=== PATIENT | male | born 1965 | race Caucasian/White ===

== ENCOUNTER 2021-02-27 07:55 | Emergency (ER) | payer OTHER ==
[~2021-02-27] VITALS: Ht 167.6 cm; Wt 77.3 kg
[2021-02-27 08:11] VITALS: TEMP 97.8
[2021-02-27 08:46] LABS: BASO % 0.3 % (0.0-2.0); EOS # 0.5 (0.0-0.7); EOS % 5.1 % (0-4.0); GRAN # 6.6 (1.4-6.5); GRAN % 68.3 % (42.2-75.2); HEMATOCRIT 45.1 % (42.0-52.0); HEMOGLOBIN 15.5 g/dl (13.5-18.0); LYMPH # 1.8 (1.2-3.4); LYMPH % 18.5 % (20.0-51.0); MEAN CELL VOLUME 87 fl (80.0-100.0); MEAN CORPUSCULAR HEMOGLOBIN 30 pg (27.0-31.0); MEAN CORPUSCULAR HGB CONC 34 g/dl (33.0-37.0); MEAN PLATELET VOLUME 9.6 fl (7.4-10.4); MONO # 0.7 (0.1-0.6); MONO % 7.1 % (1.7-9.3); PLATELET COUNT 221 K/mm3 (130-400); RED BLOOD COUNT 5.16 M/mm3 (4.20-5.60); REDCELL DISTRIBUTION WIDTH-CV 13.3 % (11.5-14.5)
[2021-02-27 09:01] LABS: ALBUMIN 4.2 gm/dL (3.5-5.0); BILIRUBIN,TOTAL 1.3 mg/dL (0.2-1.2); CALCIUM 9.9 mg/dL (8.4-10.2); CREATININE, serum 0.88 mg/dL (0.72-1.25); POTASSIUM 4.5 mmol/L (3.5-4.5); TOTAL PROTEIN 7.9 gm/dL (6.2-8.1)
[2021-02-27] MEDS ORDERED: ZOFRAN ODT4 MG PO (11:13)
[2021-02-27 11:17] VITALS: BP 126/85; PULSE 78
== END 2021-02-27 11:21 | disposition home or self-care (01) ==
LOC: COL.ER 07:55
PROVIDERS: Personal Emergency Response Attendant
DX: R10.31 Right lower quadrant pain (principal); R11.10 Vomiting, unspecified; E11.9 Type 2 diabetes mellitus without complications; J45.909 Unspecified asthma, uncomplicated; I10 Essential (primary) hypertension; Z90.49 Acquired absence of other specified parts of digestive tract
CPT/HCPCS: J2270; J7030; Q9967

== ENCOUNTER 2021-07-16 13:54 | Observation (INO) | payer OTHER ==
[~2021-07-16] VITALS: Ht 167.6 cm; Wt 80.3 kg
[~2021-07-16 13:54] MED LIST: ZOFRAN ODT4 MG PO
[2021-07-16 14:16] LABS: BASO % 0.4 % (0.0-2.0); EOS # 0.5 K/mm3 (0.0-0.7); EOS % 5.4 % (0.0-4.0); GRAN % 64.2 % (42.2-75.2); HEMATOCRIT 39.6 % (42.0-52.0); HEMOGLOBIN 13.9 g/dl (13.5-18.0); LYMPH % 21.8 % (20.0-51.0); MEAN CELL VOLUME 83 fl (80.0-100.0); MEAN CORPUSCULAR HEMOGLOBIN 29 pg (27-31); MEAN CORPUSCULAR HGB CONC 35 g/dl (33.0-37.0); MONO # 0.7 K/mm3 (0.1-0.6); MONO % 7.4 % (1.7-9.3); PLATELET COUNT 260 K/mm3 (130-400); RED BLOOD COUNT 4.75 M/mm3 (4.20-5.60); REDCELL DISTRIBUTION WIDTH-CV 13.2 % (11.5-14.5)
[2021-07-16 14:23] LABS: INR 1.1 (0.8-3.0); PROTHROMBIN TIME 11.8 SECONDS (9.7-12.8)
[2021-07-16 14:26] LABS: PARTIAL THROMBOPLASTIN TIME 25.9 SECONDS (26.0-37.0)
[2021-07-16 14:31] LABS: ALANINE AMINOTRANSFERASE 48 U/L (0-55); ALBUMIN 4.2 gm/dL (3.5-5.0); ALKALINE PHOSPHATASE 108 U/L (40-150); ANION GAP 11 mmol/L (7-16); AST,SGOT 29 U/L (5-34); BILIRUBIN,TOTAL 1.5 mg/dL (0.2-1.2); BLOOD UREA NITROGEN 12 mg/dL (8-26); CALCIUM 9.7 mg/dL (8.4-10.2); CARBON DIOXIDE 23 mmol/L (22-29); CHLORIDE 105 mmol/L (98-107); CREATININE, serum 0.78 mg/dL (0.72-1.25); GLUCOSE 152 mg/dL (70-99); POTASSIUM 3.6 mmol/L (3.5-4.5); SODIUM 139 mmol/L (136-145); TOTAL PROTEIN 7.1 gm/dL (6.2-8.1)
[2021-07-16 14:37] LABS: TROPONIN-I < 0.010 ng/mL (0.00-0.033)
[2021-07-16] MEDS ORDERED: LIPITOR20 MG PO (19:25)
[2021-07-16] MEDS ORDERED: TRULICITY1.5 MG/0.5 SQ (19:25)
[2021-07-16] MEDS ORDERED: PROTONIX 40MG T40 MG PO (19:25)
[2021-07-16] MEDS ORDERED: PROVENTIL0.09 MG/A1 IH (19:26)
[2021-07-16] MEDS ORDERED: COZAAR 25MG25 MG/TAB PO (19:26)
[2021-07-16] MEDS ORDERED: ERY-TAB250 MG PO (19:26)
[2021-07-16] MEDS ORDERED: PEPCID 20MG TAB20 MG PO (19:27)
[2021-07-16] MEDS ORDERED: HCTZ12.5TAB PO (19:27)
[2021-07-16] MEDS ORDERED: GLUCOPHAGE1000 MG PO (19:27)
[2021-07-16] MEDS ORDERED: ZYRTEC 10MG10 MG PO (19:28)
[2021-07-16] MEDS ORDERED: FLOMAX 0.40.4 MG/CAP PO (19:28)
[2021-07-16] MEDS ORDERED: ZOLOFT 50MG50 MG PO (19:28)
[2021-07-16] MEDS ORDERED: AMITRIPTYLINE H25 M1 PO (19:29)
[2021-07-16] MEDS ORDERED: MOTRIN 600600 MG/TAB PO (19:29)
[2021-07-16 21:15] VITALS: BP 126/86; PULSE 93; TEMP 97.4
[2021-07-16] MEDS ORDERED: RT ADVAIR 228 DISKUS IH (21:19)
[2021-07-16 23:45] VITALS: BP 100/64; PULSE 82; TEMP 97.6
[2021-07-17] VITALS (15 sets, daily range): BP systolic 102–123; BP diastolic 61–80; PULSE 68–95; TEMP 97.8–98.2
[2021-07-17 04:32] LABS: BASO % 0.4 % (0.0-2.0); EOS # 0.5 K/mm3 (0.0-0.7); EOS % 6.1 % (0.0-4.0); GRAN # 5.4 K/mm3 (1.4-6.5); GRAN % 64.2 % (42.2-75.2); HEMATOCRIT 38.8 % (42.0-52.0); HEMOGLOBIN 13.3 g/dl (13.5-18.0); LYMPH # 1.8 K/mm3 (1.2-3.4); LYMPH % 22.1 % (20.0-51.0); MEAN CELL VOLUME 87 fl (80.0-100.0); MEAN CORPUSCULAR HEMOGLOBIN 30 pg (27-31); MEAN CORPUSCULAR HGB CONC 34 g/dl (33.0-37.0); MONO # 0.6 K/mm3 (0.1-0.6); MONO % 6.7 % (1.7-9.3); PLATELET COUNT 238 K/mm3 (130-400); RED BLOOD COUNT 4.46 M/mm3 (4.20-5.60); REDCELL DISTRIBUTION WIDTH-CV 13.3 % (11.5-14.5)
[2021-07-17 04:47] LABS: ANION GAP 10 mmol/L (7-16); BLOOD UREA NITROGEN 16 mg/dL (8-26); CALCIUM 9.3 mg/dL (8.4-10.2); CARBON DIOXIDE 24 mmol/L (22-29); CHLORIDE 106 mmol/L (98-107); CHOLESTEROL 121 mg/dL (0-199); CREATININE, serum 0.85 mg/dL (0.72-1.25); GLUCOSE 183 mg/dL (70-99); HDL CHOLESTEROL 30 mg/dL (40-60); LDL CHOLESTEROL 0 mg/dL; POTASSIUM 3.8 mmol/L (3.5-4.5); SODIUM 140 mmol/L (136-145); TRIGLYCERIDE 454 mg/dL (0-149)
[2021-07-17 04:55] LABS: TROPONIN-I < 0.010 ng/mL (0.00-0.033)
--- NOTE | 2021-07-17 08:14 | NUR ---
SEE MERGE FOR ALL MEDICATION ADMINISTRATION TIMES/DOSAGES AND INTRA/POST SEDATION ASSESSMENTS.
--- NOTE | 2021-07-17 08:27 | NUR ---
PT RETURNED TO ROOM 329 FOLLOWING HEART CATH. VSS. DENIES PAIN. RIGHT RADIAL SITE CLEAN AND DRY WITH COMPRESSION BAND IN PLACE WITH 12 CC OF AIR. PT TO REMAIN ON BED REST FOR 2 HRS.
--- NOTE | 2021-07-17 09:26 | NUR ---
fast foods worker met with patient to discuss discharge plan. Patient reports that he lives in [place] with his Amy ([phone]). Patient reports that he is independent with all of his ADL's and does not utilizes and DME to assist with mobility. Patient has no oxygen needs at home. PCP is Kiran Hardy and he utilizes [facility] for medications. Patient does not have a DPOA-HC established and verbalizes that he is interested in creating one listing [facility]. Form provided to the patient with additional education. Patient is planning on returning home with no concerns. Discharge plan: Home; complete DPOA-HC form before dc
--- NOTE | 2021-07-17 10:39 | NUR ---
Initial visit; Patient thanked Interventionist for looking in on him, offering God's blessings and keeping him in Interventionist's prayers.
--- NOTE | 2021-07-17 12:51 | NUR ---
RADIAL COMPRESSION BAND REMOVED, AREA IS SOFT WITH NO ACTIVE BLEEDING. BANDAID APPLIED.
[2021-07-17] MEDS ORDERED: ASPIRIN E.C. 8181 MG PO (14:04)
[2021-07-17] MEDS ORDERED: LIPITOR 40MG TA40 MG PO (14:05)
[2021-07-17] MEDS ORDERED: PREDNISONE20 MG PO (14:06)
[2021-07-17] MEDS ORDERED: EPA FISH OIL1 SGL PO (14:10)
--- NOTE | 2021-07-17 14:34 | NUR ---
odd bundle worker followed up with patient and his DPOA-HC. Patient verbalizes that he would like to talk more about it with Amy before completing form.
--- NOTE | 2021-07-17 15:15 | NUR ---
PT MET CRITERIA FOR DISCHARGE, VSS. DENIES PAIN. RIGHT RADIAL SIGHT IS SOFT WITH CLEAN BANDAIDE. IV REMOVED WITHOUT COMPLICATIONS, CATHETER INTACT. DISCHARGE INSTRUCTIONS GIVEN, PT VERBALIZED UNDERSTANDING. PT AWARE OF F/U APPT AND OF PRESCRIPTIONS TO COMMERCIAL SINGER. PT DC TO HOME VIA WHEELCHAIR ACCOMPANIED BY CONCRETE BUCKET LOADER.
== END 2021-07-17 15:18 | disposition home or self-care (01) ==
LOC: COL.ER 13:54 → SURG 15:58
PROVIDERS: Family Medicine; Physician Assistant; ADMIT Student in an Organized Health Care Education/Training Program
DX: R07.89 Other chest pain (principal); I10 Essential (primary) hypertension; E78.5 Hyperlipidemia, unspecified; E11.43 Type 2 diabetes mellitus with diabetic autonomic (poly)neuropathy; N40.0 Benign prostatic hyperplasia without lower urinary tract symptoms; K31.84 Gastroparesis; J45.909 Unspecified asthma, uncomplicated; J45.21 Mild intermittent asthma with (acute) exacerbation; F32.A Depression, unspecified; Z20.822 Contact with and (suspected) exposure to COVID-19; Z79.899 Other long term (current) drug therapy
CPT/HCPCS: 99222-AI; G0378; J1644; J1815; J2250; J3010; J7512; Q9967

== ENCOUNTER 2022-01-10 19:48 | Emergency (ER) | payer SELFPAY ==
[~2022-01-10] VITALS: Ht 167.6 cm; Wt 77.3 kg
[~2022-01-10 19:48] MED LIST changes: +AMITRIPTYLINE H25 M1 PO; +ASPIRIN E.C. 8181 MG PO; +COZAAR 25MG25 MG/TAB PO; +EPA FISH OIL1 SGL PO; +ERY-TAB250 MG PO; +FLOMAX 0.40.4 MG/CAP PO; +GLUCOPHAGE1000 MG PO; +HCTZ12.5TAB PO; +LIPITOR 40MG TA40 MG PO; +LIPITOR20 MG PO; +MOTRIN 600600 MG/TAB PO; +PEPCID 20MG TAB20 MG PO; +PREDNISONE20 MG PO; +PROTONIX 40MG T40 MG PO; +PROVENTIL0.09 MG/A1 IH; +RT ADVAIR 228 DISKUS IH; +TRULICITY1.5 MG/0.5 SQ; +ZOLOFT 50MG50 MG PO; +ZYRTEC 10MG10 MG PO
[2022-01-10 19:53] VITALS: TEMP 98
[2022-01-10 20:11] LABS: BASO % 0.4 % (0.0-2.0); EOS # 0.6 K/mm3 (0.0-0.7); EOS % 6.5 % (0.0-4.0); GRAN # 6.1 K/mm3 (1.4-6.5); GRAN % 64.9 % (42.2-75.2); HEMATOCRIT 39.2 % (42.0-52.0); HEMOGLOBIN 13.8 g/dl (13.5-18.0); LYMPH # 1.9 K/mm3 (1.2-3.4); LYMPH % 20.6 % (20.0-51.0); MEAN CELL VOLUME 85 fl (80.0-100.0); MEAN CORPUSCULAR HEMOGLOBIN 30 pg (27-31); MEAN CORPUSCULAR HGB CONC 35 g/dl (33.0-37.0); MEAN PLATELET VOLUME 9.1 fl (7.4-10.4); MONO # 0.6 K/mm3 (0.1-0.6); MONO % 6.5 % (1.7-9.3); PLATELET COUNT 255 K/mm3 (130-400)
[2022-01-10 20:27] LABS: ALANINE AMINOTRANSFERASE 53 U/L (0-55); ALBUMIN 3.9 gm/dL (3.5-5.0); ALKALINE PHOSPHATASE 102 U/L (40-150); ANION GAP 14 mmol/L (7-16); AST,SGOT 27 U/L (5-34); BILIRUBIN,TOTAL 0.9 mg/dL (0.2-1.2); BLOOD UREA NITROGEN 14 mg/dL (8-26); CALCIUM 9.6 mg/dL (8.4-10.2); CARBON DIOXIDE 20 mmol/L (22-29); CHLORIDE 105 mmol/L (98-107); CREATININE, serum 0.93 mg/dL (0.72-1.25); GLUCOSE 308 mg/dL (70-99); POTASSIUM 3.8 mmol/L (3.5-4.5); SODIUM 139 mmol/L (136-145); TOTAL PROTEIN 7.2 gm/dL (6.2-8.1)
[2022-01-10 20:33] LABS: TROPONIN-I < 0.010 ng/mL (0.00-0.033)
[2022-01-11] MEDS ORDERED: PREDNISONE20 MG PO (01:11)
[2022-01-11 01:23] VITALS: BP 164/104; PULSE 101
== END 2022-01-11 01:25 | disposition home or self-care (01) ==
LOC: COL.ER 19:48
PROVIDERS: Emergency Medicine
DX: J45.901 Unspecified asthma with (acute) exacerbation (principal); Z87.891 Personal history of nicotine dependence; Z20.822 Contact with and (suspected) exposure to COVID-19
CPT/HCPCS: J7512

== ENCOUNTER 2022-03-26 20:56 | Emergency (ER) | payer OTHER ==
[~2022-03-26] VITALS: Ht 167.6 cm; Wt 77.3 kg
[2022-03-26 20:59] VITALS: TEMP 98.2
[2022-03-26 22:35] LABS: COLLECTION METHOD CLEAN CATCH
[2022-03-26 22:41] LABS: BASO # 0.1 K/mm3 (0.0-0.2); BASO % 0.5 % (0.0-2.0); EOS # 0.3 K/mm3 (0.0-0.7); EOS % 3.5 % (0.0-4.0); GRAN # 5.8 K/mm3 (1.4-6.5); GRAN % 63.6 % (42.2-75.2); HEMATOCRIT 39.2 % (42.0-52.0); LYMPH # 2.2 K/mm3 (1.2-3.4); LYMPH % 23.7 % (20.0-51.0); MEAN CELL VOLUME 83 fl (80.0-100.0); MEAN CORPUSCULAR HEMOGLOBIN 30 pg (27-31); MEAN CORPUSCULAR HGB CONC 36 g/dl (33.0-37.0); MEAN PLATELET VOLUME 8.9 fl (7.4-10.4); MONO # 0.7 K/mm3 (0.1-0.6); MONO % 7.9 % (1.7-9.3); PLATELET COUNT 286 K/mm3 (130-400); RED BLOOD COUNT 4.71 M/mm3 (4.20-5.60); REDCELL DISTRIBUTION WIDTH-CV 12.9 % (11.5-14.5)
[2022-03-26 22:42] LABS: MUCOUS Present (NOT PRESENT); SQUAMOUS EPITHELIAL None Seen /hpf (0-10); URINE APPEARANCE Clear (CLEAR/HAZY); URINE BACTERIA Rare /hpf (NONE SEEN); URINE COLOR Yellow (YELLOW); URINE RBC 0-2 /hpf (0-2)
[2022-03-26 22:43] LABS: URINE BLOOD Negative (NEGATIVE); URINE GLUCOSE Negative (NEGATIVE); URINE KETONE Negative (NEGATIVE); URINE NITRATE Negative (NEGATIVE); URINE PROTEIN(semi-quant) Negative (NEGATIVE); URINE UROBILINOGEN 0.2 E.U/dL (0.2-1.0)
[2022-03-26 22:57] LABS: TRICYCLIC ANTIDEPRESS URINE NEGATIVE
[2022-03-26 22:58] LABS: ALANINE AMINOTRANSFERASE 43 U/L (0-55); ALBUMIN 4.3 gm/dL (3.5-5.0); ALKALINE PHOSPHATASE 95 U/L (40-150); ANION GAP 11 mmol/L (7-16); AST,SGOT 28 U/L (5-34); BILIRUBIN,TOTAL 0.9 mg/dL (0.2-1.2); BLOOD UREA NITROGEN 15 mg/dL (8-26); C-REACTIVE PROTEIN 0.11 mg/dL (0.00-0.50); CALCIUM 9.9 mg/dL (8.4-10.2); CARBON DIOXIDE 23 mmol/L (22-29); CHLORIDE 108 mmol/L (98-107); CREATININE, serum 0.95 mg/dL (0.72-1.25); GLUCOSE 135 mg/dL (70-99); POTASSIUM 3.7 mmol/L (3.5-4.5); SODIUM 142 mmol/L (136-145); TOTAL PROTEIN 7.6 gm/dL (6.2-8.1)
[2022-03-26 23:10] LABS: TROPONIN-I < 0.010 ng/mL (0.00-0.033)
[2022-03-26] MEDS ORDERED: CEPHALEXIN500 M1 PO (23:52)
[2022-03-27 00:07] VITALS: BP 147/88; PULSE 87
[2022-03-28] MEDS ORDERED: DESYREL 50MG50 MG PO ×2 (02:08→15:04)
[2022-03-28] MEDS ORDERED: ATARAX 25MG25 MG/TAB PO ×2 (02:08→15:04)
== END 2022-03-27 00:18 | disposition home or self-care (01) ==
LOC: COL.ER 20:56
PROVIDERS: Nurse Practitioner
DX: F41.9 Anxiety disorder, unspecified (principal); N39.0 Urinary tract infection, site not specified; Z86.16 Personal history of COVID-19
CPT/HCPCS: J2060

== ENCOUNTER 2022-03-27 12:41 | Emergency (ER) | payer OTHER ==
[~2022-03-27] VITALS: Ht 170.2 cm; Wt 77.3 kg
[~2022-03-27 12:41] MED LIST changes: +CEPHALEXIN500 M1 PO
[2022-03-27 12:54] VITALS: TEMP 97.5
[2022-03-27 16:23] VITALS: BP 152/101; PULSE 103
[2022-03-28] MEDS ORDERED: ATARAX 25MG25 MG/TAB PO ×2 (02:08→15:04)
[2022-03-28] MEDS ORDERED: DESYREL 50MG50 MG PO ×2 (02:08→15:04)
== END 2022-03-27 16:29 | disposition home or self-care (01) ==
LOC: COL.ER 12:41
DX: F41.9 Anxiety disorder, unspecified (principal); Z86.16 Personal history of COVID-19
CPT/HCPCS: J8540

== ENCOUNTER 2022-03-28 01:14 | Emergency (ER) | payer OTHER ==
[~2022-03-28] VITALS: Ht 167.6 cm; Wt 77.3 kg
[2022-03-28 01:18] VITALS: TEMP 97.2
[2022-03-28] MEDS ORDERED: ATARAX 25MG25 MG/TAB PO ×2 (02:08→15:04)
[2022-03-28] MEDS ORDERED: DESYREL 50MG50 MG PO ×2 (02:08→15:04)
[2022-03-28 02:28] VITALS: BP 104/71; PULSE 104
== END 2022-03-28 02:32 | disposition home or self-care (01) ==
LOC: COL.ER 01:14
DX: F41.9 Anxiety disorder, unspecified (principal); F43.9 Reaction to severe stress, unspecified; G47.00 Insomnia, unspecified; Z86.16 Personal history of COVID-19

== ENCOUNTER 2022-07-23 06:44 | Emergency (ER) | payer OTHER ==
[~2022-07-23] VITALS: Ht 167.6 cm; Wt 75.0 kg
[~2022-07-23 06:44] MED LIST changes: +ATARAX 25MG25 MG/TAB PO; +DESYREL 50MG50 MG PO
[2022-07-23 07:15] VITALS: TEMP 97.5
[2022-07-23] MEDS ORDERED: TRANSDERM-0.5 MG/21 TD (07:29)
[2022-07-23] MEDS ORDERED: REMERON 15M15 MG/TA1 PO (07:30)
[2022-07-23 08:20] LABS: COLLECTION METHOD CLEAN CATCH
[2022-07-23 08:35] LABS: MUCOUS Present (NOT PRESENT); SQUAMOUS EPITHELIAL None Seen /hpf (0-10); URINE BACTERIA None Seen /hpf (NONE SEEN); URINE RBC 0-2 /hpf (0-2)
[2022-07-23 08:36] LABS: BASO # 0.1 K/mm3 (0.0-0.2); BASO % 0.6 % (0.0-2.0); EOS # 0.3 K/mm3 (0.0-0.7); EOS % 3.4 % (0.0-4.0); GRAN # 6.2 K/mm3 (1.4-6.5); GRAN % 70.2 % (42.2-75.2); HEMATOCRIT 47.9 % (42.0-52.0); HEMOGLOBIN 16.3 g/dl (13.5-18.0); LYMPH # 1.7 K/mm3 (1.2-3.4); MEAN CELL VOLUME 85 fl (80.0-100.0); MEAN CORPUSCULAR HEMOGLOBIN 29 pg (27-31); MEAN CORPUSCULAR HGB CONC 34 g/dl (33.0-37.0); MEAN PLATELET VOLUME 9.2 fl (7.4-10.4); MONO # 0.5 K/mm3 (0.1-0.6); MONO % 6.1 % (1.7-9.3); PLATELET COUNT 335 K/mm3 (130-400); RED BLOOD COUNT 5.67 M/mm3 (4.20-5.60); REDCELL DISTRIBUTION WIDTH-CV 13.3 % (11.5-14.5)
[2022-07-23 08:36] LABS: PH 5.5 (5.0-8.5); URINE APPEARANCE Clear (CLEAR/HAZY); URINE BLOOD Negative (NEGATIVE); URINE COLOR Yellow (YELLOW); URINE GLUCOSE 2+ (NEGATIVE); URINE KETONE Negative (NEGATIVE); URINE NITRATE Negative (NEGATIVE); URINE PROTEIN(semi-quant) Negative (NEGATIVE); URINE UROBILINOGEN 0.2 E.U/dL (0.2-1.0)
[2022-07-23 08:44] LABS: ALBUMIN 4.2 gm/dL (3.5-5.0); BILIRUBIN,TOTAL 1.9 mg/dL (0.2-1.2); C-REACTIVE PROTEIN 0.21 mg/dL (0.00-0.50); CALCIUM 10.4 mg/dL (8.4-10.2); CREATININE, serum 0.99 mg/dL (0.72-1.25); POTASSIUM 3.8 mmol/L (3.5-4.5); TOTAL PROTEIN 7.9 gm/dL (6.2-8.1)
[2022-07-23] MEDS ORDERED: PROMETHAZINE12.5 M5 PO (09:21)
[2022-07-23 09:34] VITALS: BP 110/88; PULSE 96
== END 2022-07-23 09:34 | disposition home or self-care (01) ==
LOC: COL.ER 06:44
PROVIDERS: Family Medicine
DX: K31.84 Gastroparesis (principal); Z86.16 Personal history of COVID-19; Z90.49 Acquired absence of other specified parts of digestive tract
CPT/HCPCS: J1200; J2060; J2550; J7120